=== PATIENT | female | born 1990 | race Caucasian/White ===

== ENCOUNTER 2025-05-04 17:35 | Emergency (ER) | payer MEDICAID ==
[~2025-05-04] VITALS: Ht 162.6 cm; Wt 82.0 kg
[2025-05-04 17:43] VITALS: O2SAT 98
[2025-05-04] MEDS ORDERED: ONDANSETRON 4MG ODT PO ONE (18:00)
[2025-05-04] MEDS: ONDANSETRON HCL 4MG/2ML INJ IV ONE (18:28)
[2025-05-04] MEDS: SODIUM CHLORIDE 0.9% 1,000 ML IV ONE (18:28)
[2025-05-04] MEDS: MAGNESIUM/ALUMINUM HYDROXIDE/SIMETHICONE 30ML UDC PO ONE (18:28)
[2025-05-04 18:43] LABS: CLARITY URINE CLOUDY (CLEAR); GLUCOSE URINE NEGATIVE (NEGATIVE); KETONES URINE 1+ (NEGATIVE); LEUKOCYTE ESTERASE URINE 1+ (NEGATIVE); NITRITE URINE NEGATIVE (NEGATIVE); OCCULT BLOOD URINE NEGATIVE (NEGATIVE); PH URINE 8.5 (4.5-8.0); PROTEIN URINE 3+ (NEGATIVE); SPECIFIC GRAVITY URINE 1.030 (1.005-1.030); UROBILINOGEN URINE 1.0 E.U./dL (0.2-1.0)
[2025-05-04 18:53] LABS: HEMATOCRIT. 45.1 % (36.0-48.0); HEMOGLOBIN. 15.2 g/dL (12.0-16.0); MEAN PLATELET VOLUME 10.0 fl (7.4-10.4); PLATELET 225 x1000/uL (130-400); RED BLOOD CELL COUNT 4.79 mill/uL (4.2-5.4); RED CELL DISTRIBUTION WIDTH 12.5 % (11.6-14.6)
[2025-05-04 19:10] LABS: CREATININE 0.9 mg/dL (0.6-1.0); UREA NITROGEN BLOOD 7 mg/dL (9-23)
[2025-05-04 19:11] LABS: PROTEIN TOTAL 8.6 g/dL (6.0-8.3)
[2025-05-04 19:12] LABS: ASPARTATE AMINOTRANSFERASE 25 IU/L (<34); BILIRUBIN DIRECT 0.2 mg/dL (<=3.0); BILIRUBIN TOTAL 0.7 mg/dL (0.1-1.0)
[2025-05-04 19:30] LABS: HCG SCREEN NEGATIVE
[2025-05-04 19:31] LABS: COLOR URINE YELLOW (YELLOW)
[2025-05-04 19:37] LABS: LYMPHOCYTES % MANUAL 7.0 % (20.0-60.0); MONOCYTES % MANUAL 3.0 % (2.0-8.0); NEUTROPHILS % MANUAL 90.0 % (45.0-75.0); PLATELET ESTIMATE NORMAL
[2025-05-04 19:42] LABS: BACTERIA URINE TRACE; RBC URINE NONE SEEN /hpf (0-2); SQUAMOUS EPITHELIAL CELL URINE 3+ /lpf (RARE/1+)
[2025-05-04 19:43] LABS: MUCUS URINE 3+ /lpf (< = 2+)
[2025-05-04] MEDS ORDERED: DICY-18 MT (20:31)
[2025-05-04] MEDS ORDERED: ONDA-239 PO (20:31)
[2025-05-04 20:41] VITALS: BP 114/48; PULSE 74; RESP 16; TEMP 36.7; O2SAT 97
[2025-05-04] MEDS: DICYCLOMINE HCL 10MG CAPSULE PO ONE (20:53)
== END 2025-05-04 20:58 | disposition home or self-care (01) ==
LOC: ER 17:35
DX: R10.13 Epigastric pain (principal); R11.2 Nausea with vomiting, unspecified
CPT/HCPCS: 99283; 96374; 80076; 80048; 81003; 81025; 84703; 83690; 85025; 36415; J2405; J7030